=== PATIENT | male | born 1950 | race Caucasian/White ===

== ENCOUNTER → 2020-03-12 | Outpatient (CLI) | payer MEDICARE, BC ==
[~2020-03-12] MED LIST: ALFUZOSIN HCL E10 MG PO; CRESTOR40 MG PO; FLONASE 0.05% N16 GM; HYDROCODON-ACE1 EAC4 PO; LEVOTHYROXINE100 MC2 PO; LEXAPRO TAB 1010 MG PO; LISINOPRIL10 MG PO; METOPROLOL TART25 MG PO; MIRAPEX0.25 MG PO; NITROGLYCERIN0.4 MG SL; PLAVIX75 MG PO; PROAIR HFA8.5 GM INH; PROTONIX 40 MG40 M1 PO; SEROQUEL50 MG PO; SINGULAIR10 MG PO; ST. JOSEPH ASPI81 M1 PO; VITAMIN D325 MCG PO; WARFARIN SODIUM4 MG PO
== END ==
LOC: SLEEP 15:01
DX: G47.33 Obstructive sleep apnea (adult) (pediatric) (principal); R55 Syncope and collapse; J32.4 Chronic pansinusitis; R42 Dizziness and giddiness; G47.37 Central sleep apnea in conditions classified elsewhere
CPT/HCPCS: 95810

== ENCOUNTER → 2020-08-10 | Day surgery (SDC) | payer MEDICARE, BC | END | disposition home or self-care (01) | LOC: OR 05:57 | DX: Z12.11 Encounter for screening for malignant neoplasm of colon (principal); D12.3 Benign neoplasm of transverse colon; K57.30 Diverticulosis of large intestine without perforation or abscess without bleeding; I12.9 Hypertensive chronic kidney disease with stage 1 through stage 4 chronic kidney disease, or unspecified chronic kidney disease; E11.22 Type 2 diabetes mellitus with diabetic chronic kidney disease; N18.9 Chronic kidney disease, unspecified; M19.90 Unspecified osteoarthritis, unspecified site; I48.91 Unspecified atrial fibrillation; I25.10 Atherosclerotic heart disease of native coronary artery without angina pectoris; F32.9 Major depressive disorder, single episode, unspecified; J45.40 Moderate persistent asthma, uncomplicated; K21.9 Gastro-esophageal reflux disease without esophagitis; E03.9 Hypothyroidism, unspecified; E78.5 Hyperlipidemia, unspecified; D50.9 Iron deficiency anemia, unspecified; G47.33 Obstructive sleep apnea (adult) (pediatric); G25.81 Restless legs syndrome; Z87.891 Personal history of nicotine dependence; Z95.1 Presence of aortocoronary bypass graft; Z79.02 Long term (current) use of antithrombotics/antiplatelets; Z79.01 Long term (current) use of anticoagulants; Z79.82 Long term (current) use of aspirin; Z79.899 Other long term (current) drug therapy | CPT/HCPCS: J2001; J2704; J7030 ==

== ENCOUNTER → 2020-09-27 | Outpatient (CLI) | payer MEDICARE, BC | LOC: EXRD 11:34 | DX: M79.672 Pain in left foot (principal) | CPT/HCPCS: 73630 ==

== ENCOUNTER 2021-02-13 12:00 | Emergency (ER) | payer MEDICARE, BC | END 2021-02-13 13:07 | disposition home or self-care (01) | LOC: ER1 12:00 | DX: S40.012A Contusion of left shoulder, initial encounter (principal); S00.81XA Abrasion of other part of head, initial encounter; E78.5 Hyperlipidemia, unspecified; I51.9 Heart disease, unspecified; J45.909 Unspecified asthma, uncomplicated; Z87.891 Personal history of nicotine dependence; W01.10XA Fall on same level from slipping, tripping and stumbling with subsequent striking against unspecified object, initial encounter; Y92.009 Unspecified place in unspecified non-institutional (private) residence as the place of occurrence of the external cause | CPT/HCPCS: 70450; 73030; 99284 ==

== ENCOUNTER → 2021-02-21 | Outpatient (CLI) | payer MEDICARE, BC | LOC: EXRD 09:04 | DX: R07.81 Pleurodynia (principal); M79.602 Pain in left arm | CPT/HCPCS: 71101; 73060; 73080; 73110 ==

== ENCOUNTER → 2021-08-22 | Outpatient (CLI) | payer MEDICARE, BC | LOC: EXRD 10:15 | DX: Z13.6 Encounter for screening for cardiovascular disorders (principal); I70.0 Atherosclerosis of aorta | CPT/HCPCS: 76706 ==